=== PATIENT | female | born 1990 | race Caucasian/White ===

== ENCOUNTER 2019-01-02 23:21 | Emergency (ER) | payer BC ==
[~2019-01-02] VITALS: Ht 162.6 cm; Wt 91.6 kg
[~2019-01-02 23:21] MED LIST: BIRTH CONTROL; ETHI1TAB PO; PROP10TA6 PO
[2019-01-02 23:25] VITALS: Ht 162.6 cm; Wt 91.6 kg
[2019-01-03] MEDS ORDERED: SOD CHLORIDE 0.9% 100 ML ONE (02:08)
[2019-01-03] MEDS ORDERED: IOHEXOL 100 ML ONE (02:08)
[2019-01-03 04:05] VITALS: BP 130/68; PULSE 90; RESP 16
== END 2019-01-03 04:05 | disposition home or self-care (01) ==
LOC: E/R 23:21
DX: R07.9 Chest pain, unspecified (principal); J45.909 Unspecified asthma, uncomplicated
CPT/HCPCS: 71045; 71275; 80053; 81025; 84484; 85025; 93005; 99285; Q9967; Z7610